=== PATIENT | male | born 1965 | race African-American/Black ===

== ENCOUNTER 2022-10-20 14:52 | Emergency (ER) | payer OTHER ==
[~2022-10-20] VITALS: Ht 177.8 cm; Wt 102.0 kg
[2022-10-20 14:57] VITALS: BP 145/109; TEMP 98.5; O2SAT 99
[2022-10-20 15:01] VITALS: PULSE 110; RESP 18
[2022-10-20] MEDS ORDERED: NAPR-681 PO (16:25)
== END 2022-10-20 16:48 | disposition home or self-care (01) ==
LOC: ER 14:52
DX: S43.402A Unspecified sprain of left shoulder joint, initial encounter (principal); X58.XXXA Exposure to other specified factors, initial encounter; Y93.89 Activity, other specified; Y92.89 Other specified places as the place of occurrence of the external cause; Y99.8 Other external cause status
CPT/HCPCS: 73030; 73130; 99284